=== PATIENT | male | born 1960 | race Caucasian/White ===

== ENCOUNTER → 2025-03-16 | Outpatient (CLI) | payer OTHER | END | disposition home or self-care (01) | LOC: RAD 14:42 | PROVIDERS: ATTEND Nurse Practitioner | DX: M16.0 Bilateral primary osteoarthritis of hip (principal); I70.90 Unspecified atherosclerosis; Z00.00 Encounter for general adult medical examination without abnormal findings | CPT/HCPCS: 73502; 73560-LT ==